=== PATIENT | male | born 1960 ===

== ENCOUNTER 2017-11-12 13:19 | Inpatient (IN) | payer MEDICAID, OTHER ==
[2017-11-12 13:28] VITALS: RESP 18
[2017-11-12 14:25] LABS: BASO # 0.1 K/uL (0.0-0.2); BASO % 0.6 % (0.0-2.0); EOS # 0.1 K/uL (0.0-0.7); EOS % 1.2 % (0.0-4.0); HEMOGLOBIN 16.9 g/dL (12.0-18.0); LYMPH # 1.3 K/uL (1.0-4.3); MEAN CELL VOLUME 93.7 fL (80.0-94.0); MEAN CORPUSCULAR HEMOGLOBIN 32.2 pg (27.0-31.0); MEAN CORPUSCULAR HGB CONC 34.4 g/dL (33.0-37.0); MEAN PLATELET VOLUME 7.5 fL (7.2-11.7); MONO # 0.5 K/uL (0.0-0.8); MONO % 6.1 % (0.0-10.0); NEUT % 78.1 % (50.0-75.0); RBC 5.23 Mil/uL (4.40-5.90)
[2017-11-12 14:38] LABS: BLOOD UREA NITROGEN 16 mg/dL (9-20); GFR AFRICAN-AMERICAN > 60; GFR NON-AFRICAN AMERICAN > 60
[2017-11-12 14:39] LABS: ALB/GLOB RATIO 1.1 (1.0-2.1); ALBUMIN 3.8 g/dL (3.5-5.0); ALT/SGPT 19 U/L (21-72); AST/SGOT 23 U/L (17-59); CALCIUM 9.4 mg/dl (8.6-10.4)
--- NOTE | 2017-11-12 14:51 | C.PDOC ---
History Of Present Illness 57-year-old male, presents to the emergency department with complaints of suicidal ideation. Patient states he is feeling depressed, and his plan is to run in front of traffic. Denies any HI. Time Seen by Provider: 11/12/17 13:43 Chief Complaint (Nursing): Psychiatric Evaluation History Per: Patient History/Exam Limitations: no limitations Past Medical History Reviewed: Historical Data, Nursing Documentation, Vital Signs Vital Signs: Last Vital Signs Temp 98.6 F 11/12/17 16:56 Pulse 84 11/12/17 16:56 Resp 18 11/12/17 16:56 BP 144/77 11/12/17 16:56 Pulse Ox 97 11/12/17 16:56 - Medical History PMH: COPD, Depression, HTN (non-compliant with meds) Denies: Diabetes, Hepatitis, HIV, Seizures, Sexually Transmitted Disease Surgical History: Hernia Repair Family History: States: No Known Family Hx - Social History Hx Tobacco Use: No Hx Alcohol Use: Yes (Former) Hx Substance Use: Yes (LAST USED "A FEW DAYS AGO") - Immunization History Hx Influenza Vaccination: No Review Of Systems Constitutional: Negative for: Fever Cardiovascular: Negative for: Chest Pain Psych: Positive for: Depression, Suicidal ideation. Negative for: Psychosis Physical Exam - Physical Exam Appears: Non-toxic, No Acute Distress, Other (flat affect) Skin: Normal Color, Warm, Dry, No Rash Head: Normacephalic Eye(s): bilateral: PERRL Nose: Normal Oral Mucosa: Moist Lips: Normal Appearing Neck: Normal ROM Cardiovascular: Rhythm Regular, No Murmur Respiratory: Normal Breath Sounds, No Accessory Muscle Use Gastrointestinal/Abdominal: Soft, No Tenderness Extremity: Normal ROM, No Deformity, No Swelling Neurological/Psych: Oriented x3, Normal Speech ED Course And Treatment - Laboratory Results Result Diagrams: 11/12/17 14:19 11/12/17 14:19 O2 Sat by Pulse Oximetry: 98 (RA) Pulse Ox Interpretation: Normal Medical Decision Making Medical Decision Making: Impression Suicidal ideation Plan: * Bloodwork * Crisis evaluation * UA * Reassess and Disposition Disposition Discussed With : Abimael De Leon Doctor Will See Patient In The: Hospital Counseled Patient/Family Regarding: Studies Performed, Diagnosis - Disposition Disposition: HOSPITALIZED Disposition Time: 17:33 Condition: FAIR Forms: [employer] ([place]se) - Clinical Impression Clinical Impression: Major depression - Scribe Statement The provider has reviewed the documentation as recorded by the Scribe (Kim Alvarado) All medical record entries made by the Scribe were at my direction and personally dictated by me. I have reviewed the chart and agree that the record accurately reflects my personal performance of the history, physical exam, medical decision making, and the department course for this patient. I have also personally directed, reviewed, and agree with the discharge instructions and disposition.
[2017-11-12 16:30] LABS: SQUAMOUS EPITHIAL 1 /hpf (0-5); URINE BACTERIA RARE (<OCC); URINE BILIRUBIN NEGATIVE (NEGATIVE); URINE BLOOD NEGATIVE (NEGATIVE); URINE CLARITY Hazy (Clear); URINE COLOR Yellow (YELLOW); URINE GLUCOSE (UA) NORMAL (Normal); URINE LEUKOCYTE ESTERASE NEG Leu/uL (Negative); URINE PROTEIN NEGATIVE (NEGATIVE)
[2017-11-12 16:55] LABS: BARBITURATES, UR NEGATIVE (NEGATIVE); BENZODIAZEPINES, UR NEGATIVE (NEGATIVE); OPIATES, UR NEGATIVE (NEGATIVE); PHENCYCLIDINE, UR NEGATIVE (NEGATIVE)
--- NOTE | 2017-11-12 18:41 | PCM.BM ---
Treatment Plan Problems - Problems identified on initial assessmt Depression Date Initiated: 11/12/17 Time Initiated: 06:25 Assessment reference: NA Status: Active Suicidal Ideation Date Initiated: 11/12/17 Time Initiated: 18:40 Assessment reference: NA Status: Monitor Treatment assets and liabiliti Patient Assests: cooperative, resourceful Patient Liabilities: financial problems, substance abuse - Milieu Protocol Maintain good personal hygiene: every shift Encourage regular showers, every shift Remind patient to perform daily oral care, every shift Assist patient to perform ADL's Maintain personal safety: daily Educate patient to report safety concerns to staff, daily Monitor environment for contraband/sharps Medication safety: Monitor for expected outcome, potential side effects: daily, Assess barriers to learning: daily, Assess readiness for medication education: daily
[2017-11-13 08:59] VITALS: BP 122/82; PULSE 91; TEMP 98.2; O2SAT 98
--- NOTE | 2017-11-13 09:51 | PCM.PSYCH ---
Initial Psychiatric Evaluation - Initial Psychiatric Evaluation Type of Admission: Voluntary Legal Status: Capacity History of Present Illness and Precipitating Events: Patient is a 57 year old male self-referred to [facility] with the complaint of SI and a plan to hang himself. Patient states Im at the end of my rope Adding I have no reason to live anymore. Patient then expressed feelings of conflict. Patient is miserable living but at the same time doesnt want to kill himself because of his son. Patient reports being seen earlier today at [facility] and was discharged. Patient states they discharged him even though he said he was going to kill himself. Patient reports a history of depression and has been on meds in the past but could not remember the names of any of them. Patient has been hospitalized at both and [facility] approximately 7 times. Patient reports a history of cocaine abuse and last used a few days ago. Patient denies any other substance use. Patient reports he has been homeless for years and for the past 6 months he has been living on the [address] as he could no longer tolerate the shelters. Patient denies HI. Patient denies A/V/H. Patient maintains SI with a plan. Patient denies any history of self injury stating the world has mutilated me enough. Patient denies any medical complaints however was scratching himself aggressively at the time of the eval. Communication Spec spoke with collateral that assessed patient at [facility] this morning. Patient was seen a total of [address] Castellon. On assessment patient was nasty, cursing, yelling and very combative. Patient also made multiple derogatory racial statement. When collateral asked patient how can I help you? patient shot back: "shouldn't you f---in know!" Patient reported vague SI and stated over and over that he was going to kill himself. Patient later stated he wanted to cut his vein with a knife but his knife was already confiscated by security. Patient was not interested in any of the options he was presented. Patient was not interested in either inpatient admission or outpatient referrals. Patient was discharged from the ER after calling 911. Patient then (with EMS already on site) attempted to jump in front of the lightrail. [ End ] Current Medications: Active Medications Generic Name Dose Route Start Last Admin Trade Name Freq PRN Reason Stop Dose Admin Haloperidol 5 mg 11/12/17 21:59 Haldol PO Q8 PRN Moderate Agitation Hydroxyzine HCl 25 mg 11/12/17 22:02 Atarax PO Q6 PRN Agitation Lorazepam 1 mg 11/12/17 21:59 Ativan PO Q6 PRN Anxiety Pneumococcal Polyvalent Vaccine 0.5 ml 11/17/17 10:00 Pneumovax 23 Vaccine IM 11/17/17 10:01 .ONCE ONE Quetiapine Fumarate 100 mg 11/12/17 22:15 11/12/17 22:13 Seroquel PO Not Given HS RAFAL Trazodone HCl 50 mg 11/12/17 22:00 11/12/17 22:13 Desyrel PO Not Given HS RAFAL Past Psychiatric History - Past Psychiatric History Pertinent Medical Hx (Current Medical&Sleep Prob, Allergies): Allergies Allergy/AdvReac Type Severity Reaction Status Date / Time No Known Allergies Allergy Verified 11/12/17 13:24 No Known Home Med 11/12/17
--- NOTE | 2017-11-13 10:37 | PCM.PYCHDC ---
Mental Status Examination - Mental Status Examination Orientation: Person, Place, Situation, Time Memory: Intact Mood: Neutral Affect: Constricted Discharge Summary - Discharge Note Laboratory Data: Abnormal Lab Results 11/12/17 11/12/17 11/12/17 14:19 14:19 16:23 WBC 9.0 RBC 5.23 Hgb 16.9 Hct 49.0 MCV 93.7 MCH 32.2 H MCHC 34.4 RDW 14.0 Plt Count 345 MPV 7.5 Neut % (Auto) 78.1 H Lymph % (Auto) 14.0 L Gilliam % (Auto) 6.1 Eos % (Auto) 1.2 Baso % (Auto) 0.6 Neut # (Auto) 7.0 Lymph # (Auto) 1.3 Gilliam # (Auto) 0.5 Eos # (Auto) 0.1 Baso # (Auto) 0.1 Sodium 142 Potassium 4.0 Chloride 105 Carbon Dioxide 25 Anion Gap 16 BUN 16 Creatinine 0.9 Est GFR ( Amer) > 60 Est GFR (Non-Af Amer) > 60 Random Glucose 95 Calcium 9.4 Total Bilirubin 0.6 AST 23 ALT 19 L D Alkaline Phosphatase 125 Total Protein 7.2 Albumin 3.8 Globulin 3.4 Albumin/Globulin Ratio 1.1 Urine Color Yellow Urine Clarity Hazy Urine pH 6.0 Ur Specific [place] 1.023 Urine Protein Negative Urine Glucose (UA) Normal Urine Ketones Negative Urine Blood Negative Urine Nitrate Negative Urine Bilirubin Negative Urine Urobilinogen 4.0 Ur Leukocyte Esterase Neg Urine WBC (Auto) 1 Urine RBC (Auto) 3 Ur Squamous Epith Cells 1 Ur Transition Epith Cell < 1 Urine Bacteria Rare Urine Opiates Screen Urine Methadone Screen Ur Barbiturates Screen Ur Phencyclidine Scrn Ur Amphetamines Screen U Benzodiazepines Scrn U Oth Cocaine Metabols U Cannabinoids Screen Alcohol, Quantitative < 10 11/12/17 16:23 WBC RBC Hgb Hct MCV MCH MCHC RDW Plt Count MPV Neut % (Auto) Lymph % (Auto) Gilliam % (Auto) Eos % (Auto) Baso % (Auto) Neut # (Auto) Lymph # (Auto) Gilliam # (Auto) Eos # (Auto) Baso # (Auto) Sodium Potassium Chloride Carbon Dioxide Anion Gap BUN Creatinine Est GFR ( Amer) Est GFR (Non-Af Amer) Random Glucose Calcium Total Bilirubin AST ALT Alkaline Phosphatase Total Protein Albumin Globulin Albumin/Globulin Ratio Urine Color Urine Clarity Urine pH Ur Specific [place] Urine Protein Urine Glucose (UA) Urine Ketones Urine Blood Urine Nitrate Urine Bilirubin Urine Urobilinogen Ur Leukocyte Esterase Urine WBC (Auto) Urine RBC (Auto) Ur Squamous Epith Cells Ur Transition Epith Cell Urine Bacteria Urine Opiates Screen Negative Urine Methadone Screen Negative Ur Barbiturates Screen Negative Ur Phencyclidine Scrn Negative Ur Amphetamines Screen Negative U Benzodiazepines Scrn Negative U Oth Cocaine Metabols Positive H U Cannabinoids Screen Negative Alcohol, Quantitative Consultations:: List each consultation separately and include: 1. Reason for request. 2. Findings. 3. Follow-up Summary of Hospital Course include:: 1. Description of specific treatment plan utilized for patients during their course of treatmen. 2. Summarize the time- course for resolution of acute symptoms and/or regressed behaviors. 3. Describe issues identified and worked on during hospitalization. 4. Describe medication utilized. 5. Describe medical problems identified and treated. 6. Reassessment of suicide risk Summary of Hospital Course: Patient is a 57 year old male self-referred to [facility] with the complaint of SI and a plan to hang himself. Patient states Im at the end of my rope Adding I have no reason to live anymore. Patient then expressed feelings of conflict. Patient is miserable living but at the same time doesnt want to kill himself because of his son. Patient reports being seen earlier today at [facility] and was discharged. Patient states they discharged him even though he said he was going to kill himself. Patient reports a history of depression and has been on meds in the past but could not remember the names of any of them. Patient has been hospitalized at both and [facility] approximately 7 times. Patient reports a history of cocaine abuse and last used a few days ago. Patient denies any other substance use. Patient reports he has been homeless for years and for the past 6 months he has been living on the [address] as he could no longer tolerate the shelters. Patient denies HI. Patient denies A/V/H. Patient maintains SI with a plan. Patient denies any history of self injury stating the world has mutilated me enough. Patient denies any medical complaints however was scratching himself aggressively at the time of the eval. Focuser spoke with collateral that assessed patient at [facility] this morning. Patient was seen a total of [address] Castellon. On assessment patient was nasty, cursing, yelling and very combative. Patient also made multiple derogatory racial statement. When collateral asked patient how can I help you? patient shot back: "shouldn't you f---in know!" Patient reported vague SI and stated over and over that he was going to kill himself. Patient later stated he wanted to cut his vein with a knife but his knife was already confiscated by security. Patient was not interested in any of the options he was presented. Patient was not interested in either inpatient admission or outpatient referrals. Patient was discharged from the ER after calling 911. Patient then (with EMS already on site) attempted to jump in front of the lightrail. [ End ] - Final Diagnosis (DSM 5) Condition upon Discharge: FAIR Disposition: AGAINST MEDICAL ADVICE
[2017-11-14] MEDS ORDERED: Pneumococcal 23-Valent Vaccine IM ONE (10:00)
[2017-11-15] MEDS ORDERED: Influenza Vaccine 60 mcg/0.5 mL SYR (4YR UP) IM ONE (10:00)
[2017-11-17] MEDS ORDERED: Pneumococcal 23-Valent Vaccine IM ONE (10:00)
== END 2017-11-13 10:45 | disposition left against medical advice (07) | DRG 426 ==
LOC: C.ER 13:19 → C.5E 17:32
PROVIDERS: ADMIT Psychiatry & Neurology Psychiatry; ATTEND Psychiatry & Neurology Psychiatry
DX: F32.9 Major depressive disorder, single episode, unspecified (principal); R45.851 Suicidal ideations; Z91.14 Patient's other noncompliance with medication regimen; I10 Essential (primary) hypertension; J44.9 Chronic obstructive pulmonary disease, unspecified; Z59.0 Homelessness

== ENCOUNTER 2018-09-24 03:04 | Inpatient (IN) | payer MEDICAID, OTHER ==
[2018-09-24 03:04] VITALS: BMI 20.3
--- NOTE | 2018-09-24 03:39 | C.PDOC ---
History Of Present Illness Patient presents to the ER almost tearful stating he feels depressed with suicidal ideation. Denies plan. Time Seen by Provider: 09/24/18 03:38 History Per: Patient History/Exam Limitations: no limitations Onset/Duration Of Symptoms: Days Current Symptoms Are (Timing): Still Present Suicide/Self Injury Attempted (Context): None Modifying Factor(s): None Severity: None Pain Scale Rating Of: 0 Associated Symptoms: Depression. denies: Suicidal Plan Involuntary Hold By: None Recent travel outside of the [place]: No Additional History Per: Patient Past Medical History Reviewed: Historical Data, Nursing Documentation, Vital Signs - Medical History PMH: Anxiety, COPD, Depression, HTN Denies: Arthritis, Diabetes, Fractures, Hepatitis, HIV, Kidney Stones, Chronic Kidney Disease, Seizures, Sexually Transmitted Disease Surgical History: Hernia Repair - [facility] Procedures GROUP PSYCHOTHERAPY (11/15/17) INDIV PSYCHOTHERAPY FOR SUBSTANCE ABUSE, COGNITIV BEHAVIORAL (11/15/17) INDIVIDUAL PSYCHOTHERAPY, COGNITIVE-BEHAVIORAL (11/15/17) Family History: States: No Known Family Hx - Social History Hx Tobacco Use: No Hx Alcohol Use: No Hx Substance Use: Yes (cocaine) - Immunization History Hx Influenza Vaccination: No Review Of Systems Constitutional: Negative for: Fever, Chills Cardiovascular: Negative for: Chest Pain, Palpitations Respiratory: Negative for: Cough, Shortness of Breath Gastrointestinal: Negative for: Nausea, Vomiting Psych: Positive for: Depression, Suicidal ideation Physical Exam - Physical Exam Appears: Non-toxic Skin: Warm, Dry Head: Normacephalic Oral Mucosa: Moist Neck: Supple Chest: Symmetrical, No Tenderness Cardiovascular: Rhythm Regular Respiratory: No Rales, No Rhonchi, No Wheezing Gastrointestinal/Abdominal: Soft, No Tenderness Back: Normal Inspection Extremity: Normal ROM Extremity: Bilateral: Atraumatic Neurological/Psych: Oriented x3 ED Course And Treatment - Laboratory Results Result Diagrams: 09/24/18 05:31 09/24/18 05:31 O2 Sat by Pulse Oximetry: 96 Pulse Ox Interpretation: Normal Progress Note: Blood work and urinalysis ordered. Crisis notified. Disposition Discussed With : German Matson Comment: accepted the pt on his service and tookover the care at 7AM Doctor Will See Patient In The: Hospital Counseled Patient/Family Regarding: Studies Performed, Diagnosis - Disposition Disposition: HOSPITALIZED Disposition Time: 03:39 Condition: FAIR - POA Present On Arrival: Poor Glycemic Control - Clinical Impression Clinical Impression: Major depression, Cocaine abuse - Scribe Statement The provider has reviewed the documentation as recorded by the Scribe Kalyan Hansen All medical record entries made by the Scribe were at my direction and personally dictated by me. I have reviewed the chart and agree that the record accurately reflects my personal performance of the history, physical exam, medical decision making, and the department course for this patient. I have also personally directed, reviewed, and agree with the discharge instructions and disposition. Decision To Admit - Pt Status Changed To: Hospital Disposition Of: Inpatient - Admit Certification Admit to Inpatient:: After my assessment, the patient will require hospitalization for at least two midnights. This is because of the severity of symptoms shown, intensity of services needed, and/or the medical risk in this patient being treated as an outpatient. - InPatient: Physician Admission Certification: I certify that this patient requires 2 or more midnights of care for the following reason:: After my assessment, the patient will require hospitalization for at least two midnights. This is because of the severity of symptoms shown, intensity of services needed, and/or the medical risk in this patient being treated as an outpatient. - . Bed Request Type: Psychiatry Admitting Physician: German Matson Patient Diagnosis: Major depression, Cocaine abuse
[2018-09-24 05:33] LABS: BASO # 0.1 K/uL (0.0-0.2); BASO % 0.5 % (0.0-2.0); EOS % 0.3 % (0.0-4.0); HEMOGLOBIN 15.4 g/dL (12.0-18.0); LYMPH # 1.5 K/uL (1.0-4.3); LYMPH % 12.6 % (20.0-40.0); MEAN CELL VOLUME 93.9 fL (80.0-94.0); MEAN PLATELET VOLUME 6.8 fL (7.2-11.7); MONO # 0.8 K/uL (0.0-0.8); MONO % 6.4 % (0.0-10.0); NEUT # 9.6 K/uL (1.8-7.0); NEUT % 80.2 % (50.0-75.0); RBC 4.82 Mil/uL (4.40-5.90); RED CELL DISTRIBUTION WIDTH 13.5 % (11.5-14.5)
[2018-09-24 05:54] LABS: ALB/GLOB RATIO 1.5 (1.0-2.1); ALT/SGPT 13 U/L (21-72); AST/SGOT 27 U/L (17-59); BLOOD UREA NITROGEN 8 mg/dL (9-20); CALCIUM 8.8 mg/dl (8.6-10.4); GFR NON-AFRICAN AMERICAN > 60
[2018-09-24 08:17] LABS: SQUAMOUS EPITHIAL 1 /hpf (0-5); URINE BILIRUBIN NEGATIVE (NEGATIVE); URINE BLOOD NEGATIVE (NEGATIVE); URINE CLARITY Clear (Clear); URINE COLOR Yellow (YELLOW); URINE GLUCOSE (UA) NORMAL (Normal); URINE LEUKOCYTE ESTERASE NEG Leu/uL (Negative); URINE PROTEIN NEGATIVE (NEGATIVE); URINE UROBILINOGEN NORMAL mg/dL (0.2-1.0)
[2018-09-24 08:24] LABS: BARBITURATES, UR NEGATIVE (NEGATIVE); BENZODIAZEPINES, UR NEGATIVE (NEGATIVE); PHENCYCLIDINE, UR NEGATIVE (NEGATIVE)
[2018-09-24 08:48] LABS: OPIATES, UR NEGATIVE (NEGATIVE)
--- NOTE | 2018-09-24 15:04 | PCM.BM ---
<Patricia Rauschn - Last Filed: 09/24/18 15:00> Treatment Plan Problems - Problems identified on initial assessmt Hoplessness/helplessness Date Initiated: 09/24/18 Time Initiated: 15:05 Assessment reference: NA Status: Active Social Isolation Date Initiated: 09/24/18 Time Initiated: 15:05 Assessment reference: NA Status: Active Treatment assets and liabiliti Patient Assests: cooperative, resourceful, self-reliant, ADL independent, negotiates basic needs Patient Liabilities: poor support system, substance abuse - Milieu Protocol Maintain good personal hygiene: daily Encourage regular showers, daily Remind patient to perform daily oral care, daily Assist patient to perform ADL's Conduct patient checks and document Observation sheet: Q15 minutes Maintain personal safety: every shift Educate patient to report safety concerns to staff, every shift Monitor environment for contraband/sharps Medication safety: Monitor for expected outcome, potential side effects: every shift, Assess barriers to learning: every shift, Assess readiness for medication education: every shift <Gianna Bianchi - Last Filed: 09/25/18 11:52> Family Contact Family involvement: Famliy/SO not involved - Goals for Treatment Patient goals for treatment: "I don't care." Discharge/Continuing Care - Education Needs Education Needs: Patient Medication, Patient Coping Skills, Patient Placement options, Patient Community resources - Discharge Discharge Criteria: Tolerates medication w/o severe side effects, No longer exhibiting s/s of withdrawal, Reduction of target symptoms Discharge to:: Skilled Nursing - Treatment Team Participation Discussed with Family/SO: No Was Patient/Family/SO present at Treatment Team Meeting: Yes <Abimael De Leon - Last Filed: 09/30/18 11:14> - Diagnosis (1) Bipolar disorder, curr episode mixed, severe, w/o psychotic features Status: Acute Interventions: 09/30/18 11:14 * Assess/adjust medications daily and /or as needed * See patient on an individual basis 7x/week to assess level of manic behaviors and stability * Discuss risks, benefits, side effects and alternatives of medications * (2) Cocaine abuse Status: Acute Interventions: 09/30/18 11:14 * Assess 7x/week regarding severity of withdrawal * Educate regarding risks, benefits, side effects and alternatives of medications * Use Motivational Interviewing for abstinence * Use CBT for relapse prevention * Medication management for withdrawal symptoms * Encourage medication assisted treatment *
--- NOTE | 2018-09-25 10:49 | PCM.PSYCH ---
Initial Psychiatric Evaluation - Initial Psychiatric Evaluation Type of Admission: Voluntary Legal Status: Capacity Chief Complaint (in patient's own words): I was feeling depressed.' History of Present Illness and Precipitating Events: Pt is a 58 y/o HM who came to the ED for irritable mood and suicidal ideations. Pt has history of multiple inpatient psychiatric hospitalizations but he denies any history of follow up with a psychiatrist. Pt reports that he stopped taking his medications after the last discharge and relapsed on cocaine. Yesterday he started hearing voices and developed suicidal ideation, so he came to the hospital. He reports the following: " I'm having 6 conversations in my head all the time;" Pt has had re-occurring thoughts of suicide "for at least 5days" with idx to hang himself with a rope from a tree. Pt's thoughts of suicide worsened yesterday. He reports depressed mood and feelings of hopelessness and helplessness. He reports irritability and agitation and at times racing thoughts. He reports aud itory hallucinations but denies any visual hallucinations. He denies any other substance abuse. PMH: None reported Current Medications: Active Medications Generic Name Dose Route Start Last Admin Trade Name Freq PRN Reason Stop Dose Admin Gabapentin 300 mg 09/24/18 18:00 09/25/18 10:37 Neurontin PO 300 mg BID RAFAL Administration Haloperidol 5 mg 09/24/18 16:34 09/24/18 18:38 Haldol PO 5 mg Q4H PRN Administration Agitation Haloperidol Lactate 5 mg 09/24/18 16:34 Haldol IM Q4H PRN severe agitation Hydroxyzine HCl 50 mg 09/24/18 16:34 Atarax PO Q6H PRN Anxiety Influenza Virus Vaccine 60 mcg 09/27/18 10:00 Flucelvax Quad [id number] Syr IM 09/27/18 10:01 .ONCE ONE Mirtazapine 15 mg 09/24/18 22:00 09/24/18 21:38 Remeron PO 15 mg HS RAFAL Administration Pneumococcal Polyvalent Vaccine 0.5 ml 09/27/18 10:00 Pneumovax 23 Vaccine IM 09/27/18 10:01 .ONCE ONE Past Psychiatric History - Past Psychiatric History Previous Treatment History: Inpatient Pertinent Medical Hx (Current Medical&Sleep Prob, Allergies): Allergies Allergy/AdvReac Type Severity Reaction Status Date / Time No Known Allergies Allergy Verified 05/12/18 06:17 No Known Home Med 09/24/18 Review of Systems - Review of Systems All systems: reviewed and no additional remarkable complaints except - Psychiatric Psychiatric: Anxiety, Auditory Hallucinations, Irritability, Mood Swings, Suicidal Ideation Mental Status Examination - Personal Presentation Personal Presentation: Looks stated age - Affect Affect: Broad - Motor Activity Motor Activity: Psychomotor Agitation - Reliability in Providing Information Reliability in Providing Information: Poor, due to altered mood - Speech Speech: Organized - Mood Mood: Anxious - Formal Thought Process Formal Thought Process: Hallucinations, Delusions, Paranoia - Hallucinations/Delusions Hallucinations: Auditory Delusions: Persecution - Obsessions/Compulsions Obsessions: No Compulsions: No - Cognitive Functions Orientation: Person, Place, Situation, Time Sensorium: Alert Attention/Concentration: Attentive Abstract Thinking: [place] Estimate of Intelligence: Below average Judgement: Imparied, as evidence by: Poor judgement, Imparied, as evidence by: Lack of insight into illness - Risk Risk: Suicidal, Diminished functioning - Limitations Limitations: Living alone DSM 5 DX - DSM 5 DSM 5 Diagnosis: Bipolar disorder mixed severe with psychotic features Cocaine use disorder severe - Recommended/Plan of Treatment Treatment Recommendations and Plan of Treatment: Bipolar disorder mixed severe with psychotic features Cocaine use disorder severe CBT Psychoeducation Supportive therapy and group therapy Depakote for mood Seroquel for Psychosis Neurontin for augmentation Hydroxyzine for anxiety Remeron for depression
[2018-09-26 06:30] VITALS: O2SAT 95
--- NOTE | 2018-09-26 13:43 | PCM.PYCHPN ---
Psychiatric Progress Note - Psychiatric Progress Note Patient seen today, length of contact: 15 min Patient Chief Complaint: I was feeling depressed.' Problems Identified/Issues Discussed: Patient seen and evaluated, chart reviewed and discussed with the nurse. Patient reports irritable and agitated mood. As per the staff patient remained isolated and withdrawn. Patient still reports persecutory delusions and auditory hallucinations. He is taking the medications and denies any side effects. Symptoms are improving and he needs more time for stabilization Supportive therapy and psychoeducation were given. Medication Change: Yes Medical Record Reviewed: Yes Mental Status Examination - Cognitive Function Orientation: Person, Place, Situation, Time Memory: Intact Attention: WNL Concentration: Poor Association: WNL Fund of Knowledge: Poor - Mood Mood: Anxious - Affect Affect: Broad - Speech Speech: Soft - Formal Thought Process Formal Thought Process: Hallucinations, Delusions, Paranoia - Suicidal Ideation Suicidal Ideation: No - Homicidal Ideation Homicidal Ideation: No Goal/Treatment Plan - Goal/Treatment Plan Need for Continued Stay: Remain at risks for inpatient hospitalization, Severe depression anxiety Progress Toward Problem(s) and Goals/Treatment Plan: Bipolar disorder mixed severe with psychotic features Cocaine use disorder severe CBT Psychoeducation Supportive therapy and group therapy Depakote for mood Seroquel for Psychosis Neurontin for augmentation Hydroxyzine for anxiety Remeron for depression
[2018-09-26] MEDS: Divalproex 250 mg DR Tab PO SCH (17:19)
[2018-09-27] MEDS ORDERED: Influenza Vaccine 60 mcg/0.5 mL SYR (4YR UP) IM ONE (10:00)
[2018-09-27] MEDS ORDERED: Pneumococcal 23-Valent Vaccine IM ONE (10:00)
[2018-09-27] MEDS: Divalproex 250 mg DR Tab PO SCH ×2 (10:22→18:04)
--- NOTE | 2018-09-27 11:26 | PCM.PYCHPN ---
Psychiatric Progress Note - Psychiatric Progress Note Patient seen today, length of contact: 15 min Patient Chief Complaint: I m feeling little better.' Problems Identified/Issues Discussed: Patient seen and evaluated, chart reviewed and discussed with the nurse. As per the staff patient remained isolated and withdrawn. He reports some improvement in his irritability and agitation. Patient reports improvement in the hallucinations and paranoia. He is taking the medications and denies any side effects. Symptoms are improving and he needs more time for stabilization Supportive therapy and psychoeducation were given. Medication Change: Yes Medical Record Reviewed: Yes Mental Status Examination - Cognitive Function Orientation: Person, Place, Situation, Time Memory: Intact Attention: WNL Concentration: Poor Association: WNL Fund of Knowledge: Poor - Mood Mood: Anxious - Affect Affect: Broad - Speech Speech: Soft - Formal Thought Process Formal Thought Process: Delusions, Paranoia - Suicidal Ideation Suicidal Ideation: No - Homicidal Ideation Homicidal Ideation: No Goal/Treatment Plan - Goal/Treatment Plan Need for Continued Stay: Remain at risks for inpatient hospitalization, Severe depression anxiety Progress Toward Problem(s) and Goals/Treatment Plan: Bipolar disorder mixed severe with psychotic features Cocaine use disorder severe CBT Psychoeducation Supportive therapy and group therapy Depakote for mood Seroquel for Psychosis Neurontin for augmentation Hydroxyzine for anxiety DC Remeron for depression
[2018-09-28 09:02] VITALS: RESP 19
[2018-09-28] MEDS: Divalproex 500 mg DR Tab PO SCH ×2 (10:19→17:15)
--- NOTE | 2018-09-28 21:25 | PCM.PYCHPN ---
Psychiatric Progress Note - Psychiatric Progress Note Patient seen today, length of contact: 16 min Medication Change: No Medical Record Reviewed: Yes Mental Status Examination - Cognitive Function Orientation: Person, Place, Situation, Time Memory: Intact Attention: WNL Concentration: Poor Association: WNL Fund of Knowledge: Poor - Mood Mood: Anxious - Affect Affect: Broad - Speech Speech: Soft - Formal Thought Process Formal Thought Process: Delusions, Paranoia - Suicidal Ideation Suicidal Ideation: No - Homicidal Ideation Homicidal Ideation: No Goal/Treatment Plan - Goal/Treatment Plan Need for Continued Stay: Remain at risks for inpatient hospitalization, Severe depression anxiety
[2018-09-29 06:54] VITALS: BP 143/88; PULSE 77; TEMP 98.6
[2018-09-29] MEDS: Divalproex 500 mg DR Tab PO SCH (09:32)
--- NOTE | 2018-09-29 10:02 | PCM.PYCHDC ---
Mental Status Examination - Mental Status Examination Orientation: Person Discharge Summary - Discharge Note Consultations:: List each consultation separately and include: 1. Reason for request. 2. Findings. 3. Follow-up Summary of Hospital Course include:: 1. Description of specific treatment plan utilized for patients during their course of treatmen. 2. Summarize the time- course for resolution of acute symptoms and/or regressed behaviors. 3. Describe issues identified and worked on during hospitalization. 4. Describe medication utilized. 5. Describe medical problems identified and treated. 6. Reassessment of suicide risk Summary of Hospital Course: He went to [facility]. He left a day early - Final Diagnosis (DSM 5) Condition upon Discharge: FAIR Disposition: HOME/ ROUTINE Prescriptions/Medication Reconciliation: Divalproex [Depakote DR] 500 mg PO BID #60 tcp Gabapentin [Neurontin] 300 mg PO BID #60 cap Mirtazapine [Remeron] 15 mg PO HS #30 tab QUEtiapine [SEROquel] 50 mg PO HS #30 tab
== END 2018-09-29 11:19 | disposition home or self-care (01) | DRG 430 ==
LOC: C.ER 03:04 → C.9E 06:17 → C.5E 11:41
PROVIDERS: ADMIT Psychiatry & Neurology Psychiatry; ATTEND Psychiatry & Neurology Psychiatry
PROC: GZ3ZZZZ Medication Management (ICD-10-PCS; principal; 2018-09-24)
PROC: GZHZZZZ Group Psychotherapy (ICD-10-PCS; 2018-09-24)
PROC: GZ56ZZZ Individual Psychotherapy, Supportive (ICD-10-PCS; 2018-09-24)
DX: F31.64 Bipolar disorder, current episode mixed, severe, with psychotic features (principal); F14.20 Cocaine dependence, uncomplicated; R45.851 Suicidal ideations; F41.9 Anxiety disorder, unspecified; J44.9 Chronic obstructive pulmonary disease, unspecified; I10 Essential (primary) hypertension

== ENCOUNTER 2018-12-05 02:01 | Emergency (ER) | payer MEDICAID, OTHER ==
[2018-12-05 02:01] VITALS: BMI 20.3
[2018-12-05 02:26] VITALS: BP 147/95; PULSE 65; RESP 20; TEMP 97.6; O2SAT 93
[2018-12-05] MEDS ORDERED: Sodium Chloride 0.9% 1,000 ML ONE (02:30)
[2018-12-05] MEDS ORDERED: Sodium Chloride 0.9% 1,000 ML IV ONE (02:39)
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
[2018-12-05 03:01] LABS: BASO % 0.3 % (0.0-2.0); EOS % 0.3 % (0.0-4.0); HEMOGLOBIN 16.2 g/dL (12.0-18.0); LYMPH # 2.1 K/uL (1.0-4.3); LYMPH % 15.2 % (20.0-40.0); MEAN CELL VOLUME 94.7 fL (80.0-94.0); MEAN CORPUSCULAR HEMOGLOBIN 31.9 pg (27.0-31.0); MEAN CORPUSCULAR HGB CONC 33.7 g/dL (33.0-37.0); MEAN PLATELET VOLUME 7.1 fL (7.2-11.7); MONO # 0.8 K/uL (0.0-0.8); MONO % 5.8 % (0.0-10.0); NEUT # 10.9 K/uL (1.8-7.0); NEUT % 78.4 % (50.0-75.0); NRBC % 0.2 % (0.0-2.0); RBC 5.07 Mil/uL (4.40-5.90); RED CELL DISTRIBUTION WIDTH 13.8 % (11.5-14.5)
[2018-12-05 03:05] LABS: INR 1.1; PROTHROMBIN TIME 11.5 SECONDS (9.7-12.2)
[2018-12-05 03:10] LABS: ALB/GLOB RATIO 1.5 (1.0-2.1); ALT/SGPT 16 U/L (21-72); AST/SGOT 23 U/L (17-59); BLOOD UREA NITROGEN 16 mg/dL (9-20); GFR NON-AFRICAN AMERICAN > 60; LIPASE 30 U/L (23-300)
== END 2018-12-05 03:48 | disposition home or self-care (01) ==
LOC: C.ER 02:01
DX: R10.9 Unspecified abdominal pain (principal)
CPT/HCPCS: 80053; 80320; 82948; 83690; 85025; 85610; 85730; 86850; 86900; 96360; 99283; J7030